=== PATIENT | female | born 1960 | race Caucasian/White ===

== ENCOUNTER 2020-06-07 16:05 | Emergency (ER) | payer OTHER ==
[2020-06-07 16:25] VITALS: BP 135/58
--- NOTE | 2020-06-07 16:57 | ED Physician Documentation ---
History of Present Illness - Stated complaint Stated Complaint: FALL,KNEE PAIN - Chief complaint Chief Complaint: Trauma Ext - History obtained from History obtained from: Patient, Family - History of Present Illness Timing: Today Pain level max: 8 Pain level now: 4 - Additonal information Additional information: 59-year-old female states that she fell off of a climbing wall and landed on her feet. States that both of her knees "jammed". She states that she felt a pop. Worse with movement and better with rest. Review of Systems Ten Systems: 10 systems reviewed and negative Constitutional: denies: Fever GI: denies: Vomiting Musculoskeletal: denies: Neck pain, Back pain Neurologic: denies: Focal weakness, Numbness, Head injury, LOC PD PAST MEDICAL HISTORY - Past Medical History Past Medical History: No - Past Surgical History Past Surgical History: Yes Ortho: Other /[employer]: Tubal ligation - Present Medications Home Medications: Ambulatory Orders Medication Instructions Recorded Confirmed No Known Home Medications 06/07/20 06/07/20 - Allergies Allergies/Adverse Reactions: Allergies Allergy/AdvReac Type Severity Reaction Status Date / Time codeine Allergy Unknown Verified 06/07/20 16:26 - Social History Does the pt smoke?: No Smoking Status: Never smoker Does the pt have substance abuse?: No - Immunizations Immunizations are current?: Yes PD ED PE NORMAL - Vitals Vital signs reviewed: Yes - General General: Alert and oriented X 3, No acute distress - HEENT HEENT: Atraumatic, Moist mucous membranes - Neck Neck: Supple, no meningeal sign, No bony TTP - Cardiac Cardiac: RRR - Respiratory Respiratory: No respiratory distress, Clear bilaterally - Back Back: No spinal TTP - Derm Derm: Warm and dry - Extremities Extremities: Other - Neuro Neuro: Alert and oriented X 3 - Psych Psych: Normal mood, Normal affect - Free text exam Free text exam: Tender palpation posterior aspect of the bilateral knees. Neurovascularly intact. ACL, PCL, MCL, LCL all appear intact. No joint effusion. Somewhat limited exam secondary to pain. Otherwise normal examination of the bilateral lower extremities Results - Vitals Vitals: Vital Signs - 24 hr 06/07/20 16:21 Temperature 36.6 C Heart Rate 75 Respiratory 20 Rate Blood Pressure 135/58 H O2 Saturation 99 Oxygen O2 Source Room air - Rads (name of study) B knee xray Radiology: Prelim report reviewed, EMP read contemporaneously, See rad report B knee CT Radiology: Prelim report reviewed, EMP read contemporaneously, See rad report PD MEDICAL DECISION MAKING - ED course Complexity details: reviewed results, re-evaluated patient, considered differential, d/w patient ED course: Patient with B tibial plateau fractures. Discussed with orthopedics, Dr. Gene el, recommends B knee braces and follow up in clinic. NWB BLE. CT scan given to patient. She is visiting from near [place]. Patient declines pain medication here or for home. Patient counseled regarding signs and symptoms for which I believe and urgent re-evaluation would be necessary. Patient with good understanding of and agreement to plan and is comfortable going home at this time This document was made in part using voice recognition software. While efforts are made to proofread this document, sound alike and grammatical errors may occur. Dr. Hobbs, did come and see the patient prior to d/c and she will likely just follow up in [place]. She can be weight bearing minimally with a walker. B knee xray 1. Lateral tibial plateau fracture of the left knee. 2. No definite bony remodeling of the right knee. However, there is presence of a right knee joint effusion. If there is continued clinical concern of osseous injury, consider CT for further evaluation. B knee CT 1. Comminuted, minimally depressed, impacted fracture of the right posterolateral tibial plateau with up to 2 mm of step-off at the articular surface. 2. Moderate lipohemarthrosis. 1. Minimally depressed, impacted fracture of the left posterolateral tibial plateau with up to 2 mm of step-off at the articular surface. 2. Moderate lipohemarthrosis. Departure - Departure Disposition: 01 Home, Self Care Clinical Impression: Bilateral tibial fractures Qualifiers: Encounter type: initial encounter Fracture type: closed Qualified Code(s): S82.201A - Unspecified fracture of shaft of right tibia, initial encounter for closed fracture Condition: Good Instructions: ED Fx Knee Follow-Up: Marc Hobbs MD [Provider Admit Priv/Credential] - 06/09/20 Comments: You are to be nonweightbearing on your legs as much as possible. Stay in the braces. Follow-up with orthopedics on Tuesday. I spoke with Dr. Hobbs today, he states that he will see you on Tuesday. Discharge Date/Time: 06/07/20 20:48
--- NOTE | 2020-06-07 17:39 | XRAY Report ---
PROCEDURE: Knee 4 View BILAT INDICATIONS: fall, b knee pain TECHNIQUE: 4 views of the bilateral knee(s) were acquired. COMPARISON: None. FINDINGS: Bones: There is a slightly depressed fracture of the lateral tibial plateau of the left knee. There i s an ossicle projecting over the lateral right knee. No evident joint space narrowing. Soft tissues: There is a effusion of the right knee. No discernible left knee effusion.. No suspicio us soft tissue calcifications. IMPRESSION: 1. Lateral tibial plateau fracture of the left knee. 2. No definite bony remodeling of the right knee. However, there is presence of a right knee joint ef fusion. If there is continued clinical concern of osseous injury, consider CT for further evaluation. Reviewed by: Devin Hewitt on 06/07/2020 4:38 PM MATT Approved by: Devin Hewitt on 06/07/2020 4:38 PM MATT Station ID: [id number]
--- NOTE | 2020-06-07 19:52 | CT Report ---
PROCEDURE: LOWER EXTREMITY WO - RT INDICATIONS: tibial plateau fracture TECHNIQUE: Noncontrast 1 mm axial sections acquired of the knees, with unilateral axial, coronal and sagittal re formats. COMPARISON: Knee radiographs dated 06/07/2020. FINDINGS: Image quality: Excellent. Bones: There is a comminuted, minimally depressed impacted fracture of the right posterior lateral t ibial plateau with step-off of the articular surface measuring up to 2 mm (Schatzker type III). The c ombined fracture fragments measure 3.0 x 1.0 x 0.6 cm. The remaining osseous structures in the left knee are intact. There is generalized osteopenia. Soft tissues: A moderate lipohemarthrosis is present. The articular cartilages, ligaments, tendons, and menisci are not well evaluated with CT. Please see the report from the contralateral left knee exam performed at the same time (accession# [id number]) for evaluation of right knee findings. IMPRESSION: 1. Comminuted, minimally depressed, impacted fracture of the right posterolateral tibial plateau wit h up to 2 mm of step-off at the articular surface. 2. Moderate lipohemarthrosis. Reviewed by: Roddy Goins MD on 06/07/2020 7:51 PM PDT Approved by: Roddy Goins MD on 06/07/2020 7:51 PM PDT Station ID: [id number]
--- NOTE | 2020-06-07 19:52 | CT Report ---
PROCEDURE: LOWER EXTREMITY WO - LT INDICATIONS: tibial plateau fracture TECHNIQUE: Noncontrast 1 mm axial sections acquired of the knees, with unilateral axial, coronal and sagittal re formats. COMPARISON: Knee radiographs dated 06/07/2020 FINDINGS: Image quality: Excellent. Bones: There is a minimally depressed impacted fracture of the left posterior lateral tibial plateau with step-off of the articular surface measuring up to 2 mm (Schatzker type III). The fracture fragm ent measures 1.7 x 0.9 x 0.5 cm. The remaining osseous structures in the left knee are intact. There is generalized osteopenia. Soft tissues: A moderate lipohemarthrosis is present. The articular cartilages, ligaments, tendons, and menisci are not well evaluated with CT. Please see the report from the contralateral right knee exam performed at the same time (accession# [id number]) for evaluation of right knee findings. IMPRESSION: 1. Minimally depressed, impacted fracture of the left posterolateral tibial plateau with up to 2 mm of step-off at the articular surface. 2. Moderate lipohemarthrosis. Reviewed by: Roddy Goins MD on 06/07/2020 7:51 PM PDT Approved by: Roddy Goins MD on 06/07/2020 7:51 PM PDT Station ID: [id number]
== END 2020-06-07 20:48 | disposition home or self-care (01) ==
LOC: ED 16:05
DX: S82.142A Displaced bicondylar fracture of left tibia, initial encounter for closed fracture (principal); S82.141A Displaced bicondylar fracture of right tibia, initial encounter for closed fracture; W17.89XA Other fall from one level to another, initial encounter; Y93.31 Activity, mountain climbing, rock climbing and wall climbing; Y92.89 Other specified places as the place of occurrence of the external cause
CPT/HCPCS: 99283; 99284